=== PATIENT | male | born 1995 | race Two or more races ===

== ENCOUNTER 2025-06-12 16:03 | Outpatient (CLI) | payer OTHER, SELFPAY ==
--- NOTE | ~2025-06-12 | XR_ITS ---
EXAMINATION: XR hip BI wo pelvis DATE: 06/12/2025 16:15 INDICATION: Chronic back and hip pain TECHNIQUE: Bilateral hips and pelvis were obtained. COMPARISON: None. FINDINGS: No fracture subluxation or dislocation seen. Early osteoarthritic appearing degenerative changes appear to be be developing in the hips right worse than left. 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 No gross acute or aggressive bony or soft tissue process seen. IMPRESSION: 1. Early osteoarthritic appearing degenerative changes with no gross acute or aggressive bony process. 2. For persisting hip pain refractory to conservative therapy, consider correlation with hip MRI for optimal sensitivity. Reviewed, dictated and finalized at location A. MAKER IMPRESSION: 1. Early osteoarthritic appearing degenerative changes with no gross acute or a ggressive bony process. 2. For persisting hip pain refractory to conservative therapy, consider correla tion with hip MRI for optimal sensitivity.
--- NOTE | ~2025-06-12 | XR_ITS ---
XR lumbar spine 2-3V Indication: chronic lower back pain and bilat hip pain Comparison: None Findings: The vertebral heights are intact. No fracture or subluxation. The disc heights are intact. Soft tissues unremarkable Impression: No acute abnormality. Reviewed, dictated and finalized at location P. GER LPN Impression: No acute abnormality.
== END 2025-06-12 16:04 | disposition home or self-care (01) ==
PROVIDERS: PCP Nurse Practitioner Adult Health; Visit Provider Nurse Practitioner Adult Health
DX: M25.551 Pain in right hip (principal); M25.552 Pain in left hip; M54.9 Dorsalgia, unspecified
CPT/HCPCS: 72100; 73521